=== PATIENT | male | born 1955 | race Caucasian/White ===

== ENCOUNTER 2018-06-30 06:32 | Observation (INO) | payer MEDICARE, OTHER ==
[2018-06-27 10:06] LABS: BASOPHILS # (AUTO) 0.1 (0.0-0.1); BASOPHILS % 0.8 % (0.0-1.0); EOSINOPHILS # (AUTO) 0.4 (0.0-0.4); EOSINOPHILS % 5.6 % (0.0-6.0); HEMATOCRIT 45.9 % (38.2-49.6); HEMOGLOBIN 15.8 g/dL (14.0-18.0); LYMPHOCYTES # (AUTO) 1.7 (1.0-3.2); LYMPHOCYTES % 22.8 % (18.0-39.1); MEAN CORPUSCULAR HEMOGLOBIN 30.4 pg (28-32); MEAN CORPUSCULAR HGB CONC 34.4 g/dL (31-35); MEAN CORPUSCULAR VOLUME 88.4 fL (81-99); MONOCYTES # (AUTO) 0.8 (0.2-0.8); MONOCYTES % 10.9 % (4.4-11.3); NEUTROPHILS # (AUTO) 4.4 (2.1-6.9); NEUTROPHILS % 58.4 % (38.7-80.0); PLATELET COUNT 184 x10e3/uL (140-360); RED BLOOD COUNT 5.19 x10e6/uL (4.3-5.7); RED CELL DISTRIBUTION WIDTH 13.1 % (11.7-14.4)
--- NOTE | 2018-06-27 10:12 | Diagnostic Imaging Report ---
EXAMINATION: CHEST 2 VIEWS INDICATION: Bladder stone. ^PREOP COMPARISON: None FINDINGS: TUBES and LINES: None. LUNGS: Lungs are well inflated. Lungs are clear. There is no evidence of pneumonia or pulmonary edema. PLEURA: No pleural effusion or pneumothorax. HEART AND MEDIASTINUM: The cardiomediastinal silhouette is unremarkable. BONES AND SOFT TISSUES: No acute osseous lesion. Soft tissues are unremarkable. UPPER ABDOMEN: No free air under the diaphragm. IMPRESSION: No acute thoracic abnormality. Signed by: Dr. Valerio Ortiz M.D. on 06/27/2018 10:09 AM
[2018-06-27 10:17] LABS: ANION GAP 15.1 mmol/L (8-16); BLOOD UREA NITROGEN 11 mg/dL (7-26); BUN/CREATININE RATIO 14 (6-25); CALCIUM 9.3 mg/dL (8.4-10.2); CARBON DIOXIDE 23 mmol/L (22-29); CHLORIDE 103 mmol/L (98-107); CREATININE, SERUM 0.78 mg/dL (0.72-1.25); EST GLOMERULAR FILTRATION RATE > 60 ML/MIN (60-); GLUCOSE 119 mg/dL (74-118); POTASSIUM 4.1 mmol/L (3.5-5.1); SODIUM 137 mmol/L (136-145)
[~2018-06-30] VITALS: Ht 172.7 cm; Wt 70.3 kg
[~2018-06-30 06:32] MED LIST: CRESTOR10 MG PO; LEVOTHYROXINE112 MCG PO; LOSARTAN POTAS100 MG PO; METOPROLOL SUCC50 MG PO; TAMSULOSIN HCL0.4 MG PO
--- OUTSIDE RECORDS SUMMARY | 2018-06-30 06:35 | XMS REPORT ---
[facility] Address Unknown Phone Unavailable Care Team Providers Care Radio Repairer Domestic Name Role Phone Michael RANDHAWA Unavailable Unavailable Problems This patient has no known problems. Allergies, Adverse Reactions, Alerts This patient has no known allergies or adverse reactions. Medications This patient has no known medications. Results Test Description Test Time Test Comments Text Results Atomic Results Result Comments CHEST 2 VIEWS 2018-06-27 10:08:00 [place] [address] Patient Name: MURRAY RODRIGUEZ MR #: [id number] : 1955 Age/Sex: 63/M Req #: [id number] Adm Physician: Ordered by: RAJINDER RANDHAWA MD Report #: [id number] Location: OR Room/Bed: Procedure: [id number] DX/CHEST 2 VIEWS Exam Date: Exam Time: REPORT STATUS: Signed EXAMINATION: CHEST 2 VIEWS INDICATION: Bladder stone. PREOP COMPARISON: None FINDINGS: TUBES and LINES: None. LUNGS: Lungs are well inflated. Lungs are clear. There is no evidence of pneumonia or pulmonary edema. PLEURA: No pleural effusion or pneumothorax. HEART AND MEDIASTINUM: The cardiomediastinal silhouette is unremarkable. BONES AND SOFT TISSUES: No acute osseous lesion. Soft tissues are u nremarkable. UPPER ABDOMEN: No free air under the diaphragm. IMPRESSION: No acute thoracic abnormality. Signed by: Dr. Valerio Ortiz M.D. on 06/27/2018 10:09 AM Dictated By: VALERIO ORTIZ MD, MD 100 Transcribed By: TIMOTEO on 06/27/18 100 COPY TO: RAJINDER RANDHAWA MD
--- OUTSIDE RECORDS SUMMARY | 2018-06-30 06:35 | XMS REPORT | Clinical Summary ---
Author Author [facility] Address Unknown Phone Unavailable Care Team Providers Care Power Plant Operations Manager Name Role Phone Jorge Clark MD PCP Allergies No Known Allergies Medications End Date Status Medication Sig Dispensed Refills Start Date Active losartan (COZAAR) 100 MG Take 100 mg 0 tablet by mouth daily. Active levothyroxine (SYNTHROID, Take 125 mcg 0 LEVOXYL) 125 mcg tablet by mouth every morning. Active simvastatin (ZOCOR) 40 MG Take 40 mg by 0 tablet mouth nightly. Active nebivolol (BYSTOLIC) 5 MG Take 5 mg by 0 tablet mouth daily. Active tamsulosin (FLOMAX) 0.4 Take 0.4 mg 0 mg capsule by mouth daily. Active traMADol (ULTRAM) 50 mg Take 50 mg by 0 tablet mouth every 6 (six) hours as needed for moderate pain. Active Problems Problem Noted Date Spinal stenosis, lumbar region, with neurogenic claudication 02/25/2018 Spinal stenosis, lumbar region with neurogenic claudication 02/25/2018 Encounters Care Team Description Date Type Specialty Matthieu Colvin MD 02/25/2018 Anesthesia General Surgery Event Eddie Butler DO Posterior Lumbar Decompression L2 to S1-Bilateral 02/25/2018 Surgery General Surgery Eddie Butler DO 02/25/2018 Hospital General Surgery - Encounter 02/26/2018 Lela Abbott 02/24/2018 Refill General Surgery Eddie Butler DO Pre-op testing (Primary Dx) 02/17/2018 Pre-Admit Pre-Admission Testing Testing Appointment after 06/29/2017 Family History Medical History Relation Name Comments Diabetes Sister Relation Name Status Comments Sister Alive Social History Date Tobacco Use Types Packs/Day Years Used Quit: 02/18/2012 Former Smoker Cigarettes Smokeless Tobacco: Never Used Alcohol Use Drinks/Week oz/Week Comments No Sex Assigned at Date Recorded Not on file Industry Job Start Date Occupation Not on file Not on file Not on file Travel End Travel History Travel Start No recent travel history available. Last Filed Vital Signs Time Taken Vital Sign Reading 02/26/2018 4:01 PM CDT Blood Pressure 134/60 02/26/2018 4:01 PM CDT Pulse 73 02/26/2018 4:01 PM CDT Temperature 36.2 C (97.2 F) 02/26/2018 4:01 PM CDT Respiratory Rate 17 02/26/2018 4:01 PM CDT Oxygen Saturation 94% - Inhaled Oxygen - Concentration 02/25/2018 1:36 PM CDT Weight 115 kg (253 lb) 02/25/2018 1:36 PM CDT Height 172.7 cm (5' 8") 02/25/2018 1:36 PM CDT Body Mass Index 38.47 Plan of Treatment Health Maintenance Due Date Last Done Comments COLON CANCER SCREENING 2003 SHINGLES VACCINES (1 of 2003 2) INFLUENZA VACCINE 12/15/2017 01/08/2017 PNEUMOCOCCAL 2018 POLYSACCHARIDE VACCINE AGE 65 AND OVER PNEUMOCOCCAL-13 2018 Procedures Comments Procedure Name Priority Date/Time Associated Diagnosis ESTIMATED GFR Routine 02/26/2018 5:52 AM CDT BASIC METABOLIC PANEL Routine 02/26/2018 5:52 AM CDT HC COMPLETE BLD COUNT Routine 02/26/2018 W/AUTO DIFF 5:52 AM CDT VA AN ELECTIVE Routine 02/25/2018 ENDOTRACHEAL AIRWAY 10:18 AM CDT Procedure Note - Roseann Ball MD - 02/25/2018 10:18 AM CDT Airway Date/Time: 02/25/2018 9:53 AM Performed by: ROSEANN BALL Authorized by: ROSEANN BALL Location: OR Urgency: Elective Difficult Airway: No Anesthesio logist: ROSEANN BALL Performed by: anesthesio logist Preoxygena luigi with 100% O2: Yes C-spine Precaution s Maintained Throughout : Yes Mask Ventilatio n: Not attempted Final Airway Type: Endotrache al airway Final Endotrache al Airway: ETT Cuffed: Yes Technique Used: Direct laryngosco py Insertion Site: Oral Blade Type: Ye Laryngosco pe Blade/Vide olaryngosc ope Blade Size: 4 ETT Size (mm): 8.0 Cuff at minimum occlusion pressure: Yes Measured from: Lips ETT to Lips (cm): 24 Placement Verified by: CO2 detection and direct visualizat ion Laryngosco pic view: Grade I - full view of glottis Rapid Sequence Induction (RSI): No Modified RSI: No Number of Attempts at Approach: 1 ECG PRE/POST OP Routine 02/17/2018 Pre-op testing 5:27 PM CDT ESTIMATED GFR Routine 02/17/2018 5:17 PM CDT PROTHROMBIN TIME WITH INR Routine 02/17/2018 Pre-op testing 5:17 PM CDT BASIC METABOLIC PANEL Routine 02/17/2018 Pre-op testing 5:17 PM CDT TYPE AND SCREEN Routine 02/17/2018 Pre-op testing 5:17 PM CDT HC COMPLETE BLD COUNT Routine 02/17/2018 Pre-op testing W/AUTO DIFF 5:17 PM CDT after 06/29/2017 Results * Estimated GFR (02/26/2018 5:52 AM CDT) Only the most recent of 2 results within the time period is included. Estimated GFR >=90 mL/min/1.73 m2 [facility] Comment: PATHOLOGY AND [employer] GENOMIC MEDICINE rpretation G1 >=90 Normal or high G2 60-89Mildly decreased [id number] Mildly to moderately decreased N2i13-60 Moderately to severely decreased G4 15-29Severely decreased G5 <15Kidney failure The eGFR was calculated using the Chronic Kidney Disease Epidemiology Collaboration (CKD-EPI) equation. Interpretation is based on recommendations of the National Kidney Foundation-Kidney Disease Outcomes Quality Initiative (NKF-KDOQI) published in 2014. Specimen Plasma specimen Performing Organization Address City/State/Zipcode Phone Number [facility] [address] [place] [address] PATHOLOGY AND GENOMIC MEDICINE * CBC with platelet and differential (02/26/2018 5:52 AM CDT) Only the most recent of 2 results within the time period is included. WBC 15.4 (H) 4.2 - 11.0 k/uL [facility]OLOGY AND GENOMIC MEDICINE RBC 3.71 (L) 4.04 - 5.86 m/uL [facility] PATHOLOGY AND GENOMIC MEDICINE HGB 11.8 (L) 13.0 - 17.3 g/dL [facility]OLOGY AND GENOMIC MEDICINE HCT 35.3 34.0 - 45.0 % [facility]OLOGY AND GENOMIC MEDICINE MCV 95.1 80.0 - 98.0 fL [facility]OLOGY AND GENOMIC MEDICINE MCH 31.8 27.0 - 34.0 pg [facility]OLOGY AND GENOMIC MEDICINE MCHC 33.4 31.5 - 36.5 g/dL [facility]OLOGY AND GENOMIC MEDICINE RDW - SD 44.4 37.0 - 51.0 fL [facility] AND GENOMIC MEDICINE MPV 9.8 7.4 - 10.4 fL [facility]Y AND GENOMIC MEDICINE Platelet count 197 150 - 400 k/uL [facility]OLOGY AND GENOMIC MEDICINE Nucleated RBC 0.00 /100 WBC [facility]OLOGY AND GENOMIC MEDICINE Neutrophils 85.3 (H) 36.0 - 66.0 % [facility]OLOGY AND GENOMIC MEDICINE Lymphocytes 6.3 (L) 24.0 - 44.0 % [facility]Y AND GENOMIC MEDICINE Monocytes 7.7 (H) 0.0 - 6.0 % [facility]OLOGY AND GENOMIC MEDICINE Eosinophils 0.0 0.0 - 6.0 % [facility] PATHOLOGY AND GENOMIC MEDICINE Basophils 0.1 0.0 - 1.2 % [facility] PATHOLOGY AND GENOMIC MEDICINE Immature granulocytes 0.6 0.0 - 1.0 % [facility]OLOGY AND GENOMIC MEDICINE Specimen Blood Performing Organization Address City/State/Zipcode Phone Number [place] [phone] [place] [address] PATHOLOGY AND GENOMIC MEDICINE * Basic metabolic panel (02/26/2018 5:52 AM CDT) Only the most recent of 2 results within the time period is included. Sodium 135 135 - 150 mEq/L [facility] PATHOLOGY AND GENOMIC MEDICINE Potassium 4.6 3.5 - 5.0 mEq/L [facility] PATHOLOGY AND GENOMIC MEDICINE Chloride 100 98 - 112 mEq/L [facility]OLOGY AND GENOMIC MEDICINE CO2 25 24 - 31 mmol/L [facility] PATHOLOGY AND GENOMIC MEDICINE Anion gap 10@ANIO 7 - 15 mEq/L [facility]OLOGY AND GENOMIC MEDICINE BUN 14 7 - 18 mg/dL [facility]OLOGY AND GENOMIC MEDICINE Creatinine 0.70 0.70 - 1.20 mg/dL [facility]OLOGY AND GENOMIC MEDICINE Glucose 121 (H) 65 - 100 mg/dL [facility]OLOGY AND GENOMIC MEDICINE Calcium 8.8 8.8 - 10.2 mg/dL [facility] PATHOLOGY AND [employer] MEDICINE Specimen Plasma specimen Performing Organization Address City/[facility] Services[facility] Phone Number [place] [address] [place] [address] PATHOLOGY AND GENOMIC MEDICINE * ECG Pre/Post Op (02/17/2018 5:27 PM CDT) Ventricular rate 60 [facility] Atrial rate 60 [facility] VA interval 180 [facility] QRSD interval 100 [facility] QT interval 394 [facility] QTC interval 394 [facility] P axis 1 67 [facility] QRS axis 1 35 [facility] T wave axis 40 [facility] EKG impression Normal sinus rhythm-Normal [facility] ECG-No previous ECGs available- Performing Organization Address City/[facility] Servicescoga Phone Number [facility] [employer] [address] [place] [address] * Prothrombin time with INR (02/17/2018 5:17 PM CDT) Prothrombin time 13.0 12.0 - 15.0 sec [facility]Y AND GENOMIC MEDICINE INR 0.97 0.92 - 1.12 [facility] Comment: PATHOLOGY AND For patients on anticoagulant GENOMIC MEDICINE therapy, reference ranges below: Indication: INR Value Treatment of Venous Thrombosis, 2.0-3.0 pulmonary emboli, or prophylaxis of a venous thrombosis, or systemic emboli. High dose, high risk patients 3.0-4.5 with mechanical valves. NOTE:INR values over 3.0 are sometimes associated with gastrointestinal hemorrhage, especially values over 4.0. Specimen Blood Performing Organization Address City/[facility] Servicescode Phone Number [place] [phone] [place] [address] PATHOLOGY AND GENOMIC MEDICINE * Type and screen (02/17/2018 5:17 PM CDT) ABO grouping A [facility]Y AND GENOMIC MEDICINE Rh type NEG [facility]Y AND GENOMIC MEDICINE Antibody screen (gel) NEG [facility]Y AND GENOMIC MEDICINE Specimen Blood Performing Organization Address City/State/Zipcode Phone Number [facility] [address] [place] [address] PATHOLOGY AND GENOMIC MEDICINE after 06/29/2017 Insurance Payer Benefit Subscriber ID Type Phone Address Plan / Group BCBS BCBS OUT xxxxxxxxxxxx PPO OF STATE Advance Directives Patient has advance care planning documents, and code status on file. For more i nformation, please contact: Anand Jiménez [address] [place] [address] Date Inactivated Comments Code Status Date Activated 02/26/2018 11:19 PM Full Code 02/25/2018 1:08 PM Code Status decision reached by: Patient
[2018-06-30] MEDS ORDERED: CEFTRIAXONE SOD 1 GM/NS 50 ML 50 ML IV ONE (07:13)
[2018-06-30] MEDS ORDERED: BELLADONNA/OPIUM 30 MG SUPP RC ONE (07:56)
[2018-06-30] MEDS ORDERED: IOPAMIDOL 610MG/1ML 300 MG/ML VIAL IV ONE (07:56)
[2018-06-30] MEDS ORDERED: LABETALOL HCL 20 MG/4 ML SYRINGE IV ONE (09:31)
[2018-06-30] MEDS ORDERED: MORPHINE SULFATE INJ 4 MG/ML INJ 1ML ONE (09:47)
--- NOTE | 2018-06-30 10:13 | Operative Report ---
DATE OF PROCEDURE: June 30, 2018 PREOPERATIVE DIAGNOSIS: Bladder stone. POSTOPERATIVE DIAGNOSIS: Bladder tumor. OPERATIVE PROCEDURES PERFORMED 1. Cystoscopy. 2. Transurethral resection of bladder tumor. ANESTHESIA: General anesthesia. ESTIMATED BLOOD LOSS: Minimal. INDICATIONS: Mr. Krishna Gamez is a 63-year-old gentleman with hematuria, who was found by CT scan to have normal upper tracts, but an approximately 3 cm bladder stone. He now presents for definitive surgical management of this problem. PROCEDURE IN DETAIL: Patient was brought into the operating room and placed in the supine position. After initiation of general anesthesia, was placed in the dorsal lithotomy position, and prepped and draped in the usual sterile fashion. Cystourethroscopy was performed using a 21-Nigerian cystoscope. The anterior and posterior urethra were noted to be normal. The prostate revealed evidence of elevation of the median bar and mild lateral lobar hyperplasia. The bladder was entered with moderate difficulty. Upon entrance into the bladder, the ureteral orifices were in normal anatomical position and produced clear reflux. 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 There were multiple peripheral calcifications seen varying in sizes. The bladder was left full and the cystoscope and sheath were removed. A 44-Nigerian resectoscope sheath was then placed in a retrograde fashion. The [employer] resectoscope was used to resect the tumor down to the level of the muscle. The tumor was then removed in its entirety. A large specimen greater than 4 cm was removed and sent to pathology for microscopic analysis. Once adequate hemostasis was ensured, the bladder was left full and the cystoscope and sheath were removed. The patient was noted to have a brisk urinary flow with Coude. A 20-Nigerian Arthur was placed and the balloon inflated. This urinary efflux was noted to be blood-tinged. The patient was returned to the supine position and anesthesia was reversed. He was transferred to a bed and taken to the postanesthesia care unit in good condition. Of note, the needle and instrument count were correct at the conclusion of the case. Job#: [id number]
[2018-06-30] MEDS ORDERED: FENTANYL CITRATE/PF 100MCG/2 ML INJ ONE ×2 (10:55→19:00)
[2018-06-30] MEDS ORDERED: ONDANSETRON HCL INJ 2MG/ML 2ML 2 MG/ML VIAL ONE ×2 (13:31→19:35)
--- OUTSIDE RECORDS SUMMARY | 2018-06-30 13:32 | XMS REPORT | Clinical Summary ---
Author Author [facility] Organization [facility] Address Unknown Phone Unavailable Care Team Providers Care Regulatory Affairs Portfolio Leader Name Role Phone Jorge Clark MD PCP [...] Routine 02/26/2018 W/AUTO DIFF 5:52 AM CDT HI AN ELECTIVE Routine 02/25/2018 ENDOTRACHEAL AIRWAY 10:18 [...] is included. Estimated GFR >=90 mL/min/1.73 m2 [facility] Comment: PATHOLOGY AND CatergoryUnitsInte GENOMIC MEDICINE rpretation G1 >=90 Normal or high G2 60-89Mildly decreased [id number] Mildly to moderately decreased L1v00-51 Moderately to severely decreased G4 15-29Severely decreased G5 <15Kidney failure The eGFR was calculated using the Chronic Kidney Disease Epidemiology Collaboration (CKD-EPI) equation. Interpretation is based on recommendations of the National Kidney Foundation-Kidney Disease Outcomes Quality Initiative (NKF-KDOQI) published in 2014. Specimen Plasma specimen Performing Organization Address City/State/Zipcode Phone Number [facility] [address] [place] [address] PATHOLOGY AND GENOMIC MEDICINE * CBC with platelet and differential (02/26/2018 5:52 AM CDT) Only the most recent of 2 results within the time period is included. WBC 15.4 (H) 4.2 - 11.0 k/uL [facility] PATHOLOGY AND GENOMIC MEDICINE RBC 3.71 (L) 4.04 - 5.86 m/uL [facility] PATHOLOGY AND GENOMIC MEDICINE HGB 11.8 (L) 13.0 - 17.3 g/dL [facility] PATHOLOGY AND GENOMIC MEDICINE HCT 35.3 34.0 - 45.0 % [facility] PATHOLOGY AND GENOMIC MEDICINE MCV 95.1 80.0 - 98.0 fL [facility] PATHOLOGY AND GENOMIC MEDICINE MCH 31.8 27.0 - 34.0 pg [facility] PATHOLOGY AND GENOMIC MEDICINE MCHC 33.4 31.5 - 36.5 g/dL [facility] PATHOLOGY AND GENOMIC MEDICINE RDW - SD 44.4 37.0 - 51.0 fL [facility] PATHOLOGY AND GENOMIC MEDICINE MPV 9.8 7.4 - 10.4 fL [facility] PATHOLOGY AND GENOMIC MEDICINE Platelet count 197 150 - 400 k/uL [facility] PATHOLOGY AND GENOMIC MEDICINE Nucleated RBC 0.00 /100 WBC [facility] PATHOLOGY AND GENOMIC MEDICINE Neutrophils 85.3 (H) 36.0 - 66.0 % [facility] PATHOLOGY AND GENOMIC MEDICINE Lymphocytes 6.3 (L) 24.0 - 44.0 % [facility] PATHOLOGY AND GENOMIC MEDICINE Monocytes 7.7 (H) 0.0 - 6.0 % [facility] PATHOLOGY AND GENOMIC MEDICINE Eosinophils 0.0 0.0 - 6.0 % [facility] PATHOLOGY AND GENOMIC MEDICINE Basophils 0.1 0.0 - 1.2 % [facility] PATHOLOGY AND GENOMIC MEDICINE Immature granulocytes 0.6 0.0 - 1.0 % [facility] PATHOLOGY AND GENOMIC MEDICINE Specimen Blood Performing Organization Address City/State/Zipcode Phone Number [place] [phone] [place] [address] PATHOLOGY AND GENOMIC MEDICINE * Basic metabolic panel (02/26/2018 5:52 AM CDT) Only the most recent of 2 results within the time period is included. Sodium 135 135 - 150 mEq/L [facility] PATHOLOGY AND GENOMIC MEDICINE Potassium 4.6 3.5 - 5.0 mEq/L [facility] PATHOLOGY AND GENOMIC MEDICINE Chloride 100 98 - 112 mEq/L [facility] PATHOLOGY AND GENOMIC MEDICINE CO2 25 24 - 31 mmol/L [facility] PATHOLOGY AND GENOMIC MEDICINE Anion gap 10@ANIO 7 - 15 mEq/L [facility] PATHOLOGY AND GENOMIC MEDICINE BUN 14 7 - 18 mg/dL [facility] PATHOLOGY AND GENOMIC MEDICINE Creatinine 0.70 0.70 - 1.20 mg/dL [facility] PATHOLOGY AND GENOMIC MEDICINE Glucose 121 (H) 65 - 100 mg/dL [facility] PATHOLOGY AND GENOMIC MEDICINE Calcium 8.8 8.8 - 10.2 mg/dL [facility] OF PATHOLOGY AND [employer] MEDICINE Specimen Plasma specimen Performing Organization Address City/[facility] Cent[facility] Phone Number [place] [address] [place] [address] PATHOLOGY AND GENOMIC MEDICINE * ECG Pre/Post Op (02/17/2018 5:27 PM CDT) Ventricular rate 60 [facility] Atrial rate 60 [facility] HI interval 180 [facility] QRSD interval 100 [facility] QT interval 394 [facility] QTC interval 394 [facility] P axis 1 67 [facility] QRS axis 1 35 [facility] T wave axis 40 [facility] EKG impression Normal sinus rhythm-Normal [facility] ECG-No previous ECGs available- Performing Organization Address City/[facility] Centercoal Phone Number [facility] [employer] [address] [place] [address] * Prothrombin time with INR (02/17/2018 5:17 PM CDT) Prothrombin time 13.0 12.0 - 15.0 sec [facility] PATHOLOGY AND GENOMIC MEDICINE INR 0.97 0.92 - 1.12 [facility] Comment: PATHOLOGY AND For patients on anticoagulant GENOMIC MEDICINE therapy, reference ranges below: Indication: INR Value Treatment of Venous Thrombosis, 2.0-3.0 pulmonary emboli, or prophylaxis of a venous thrombosis, or systemic emboli. High dose, high risk patients 3.0-4.5 with mechanical valves. NOTE:INR values over 3.0 are sometimes associated with gastrointestinal hemorrhage, especially values over 4.0. Specimen Blood Performing Organization Address City/[facility] Cent[facility]ode Phone Number [place] [phone] [place] [address] PATHOLOGY AND GENOMIC MEDICINE * Type and screen (02/17/2018 5:17 PM CDT) ABO grouping A [facility] PATHOLOGY AND GENOMIC MEDICINE Rh type NEG [facility] PATHOLOGY AND GENOMIC MEDICINE Antibody screen (gel) NEG [facility] PATHOLOGY AND GENOMIC MEDICINE Specimen Blood Performing Organization Address City/State/Zipcode Phone Number [facility] [address] [place] [address] PATHOLOGY AND GENOMIC MEDICINE after 06/29/2017 Insurance Payer Benefit Subscriber ID Type Phone Address Plan / Group BCBS BCBS OUT xxxxxxxxxxxx PPO OF STATE Advance Directives Patient has advance care planning documents, and code status on file. For more i nformation, please contact: Anand Jiménez [address] [place] [address] Date Inactivated Comments Code Status Date Activated 02/26/2018 11:19 PM Full Code 02/25/2018 1:08 PM Code Status decision reached by: Patient
[2018-06-30 13:44] LABS: HEMATOCRIT 39.6 % (38.2-49.6); HEMOGLOBIN 13.9 g/dL (14.0-18.0)
[2018-06-30 14:41] LABS: ALANINE AMINOTRANSFERASE 27 IU/L (0-55); ALBUMIN/GLOBULIN RATIO 1.4 (0.8-2.0); ALKALINE PHOSPHATASE 50 IU/L (40-150); ANION GAP 14.3 mmol/L (8-16); BLOOD UREA NITROGEN 17 mg/dL (7-26); BUN/CREATININE RATIO 24 (6-25); CALCIUM 8.1 mg/dL (8.4-10.2); CARBON DIOXIDE 20 mmol/L (22-29); CHLORIDE 103 mmol/L (98-107); CREATININE, SERUM 0.72 mg/dL (0.72-1.25); EST GLOMERULAR FILTRATION RATE > 60 ML/MIN (60-); GLUCOSE 148 mg/dL (74-118); POTASSIUM 4.3 mmol/L (3.5-5.1); SODIUM 133 mmol/L (136-145)
[2018-06-30 15:48] VITALS: BP 106/72
[2018-06-30 15:49] VITALS: BP 107/62
[2018-06-30 16:04] VITALS: BP 107/62
[2018-06-30] MEDS ORDERED: DEXTROSE 5%/0.45% SOD CHL 1,000 ML IV SCH (16:15)
[2018-06-30] MEDS ORDERED: HYDROCODONE/APAP 5MG-325MG TAB PO PRN (16:15)
[2018-06-30] MEDS ORDERED: SODIUM CHLORIDE 0.9% 1000ML 2,000 ML ONE (16:19)
[2018-06-30] MEDS ORDERED: SODIUM CHLORIDE 0.9% 1000ML 1,000 ML IV SCH ×2 (16:30)
[2018-06-30 16:34] LABS: BASOPHILS % 0.1 % (0.0-1.0); HEMOGLOBIN 12.7 g/dL (14.0-18.0); LYMPHOCYTES # (AUTO) 1.1 (1.0-3.2); LYMPHOCYTES % 7.7 % (18.0-39.1); MEAN CORPUSCULAR HEMOGLOBIN 30.5 pg (28-32); MEAN CORPUSCULAR HGB CONC 34.3 g/dL (31-35); MEAN CORPUSCULAR VOLUME 88.7 fL (81-99); MONOCYTES # (AUTO) 0.3 (0.2-0.8); MONOCYTES % 2.4 % (4.4-11.3); NEUTROPHILS # (AUTO) 12.4 (2.1-6.9); NEUTROPHILS % 89.2 % (38.7-80.0); PLATELET COUNT 240 x10e3/uL (140-360); RED BLOOD COUNT 4.17 x10e6/uL (4.3-5.7); RED CELL DISTRIBUTION WIDTH 13.5 % (11.7-14.4)
[2018-06-30] MEDS: SODIUM CHLORIDE 0.9% 1000ML 1,000 ML IV SCH (16:37)
[2018-06-30 16:54] LABS: ANION GAP 14.8 mmol/L (8-16); BLOOD UREA NITROGEN 17 mg/dL (7-26); BUN/CREATININE RATIO 22 (6-25); CALCIUM 8.3 mg/dL (8.4-10.2); CARBON DIOXIDE 20 mmol/L (22-29); CHLORIDE 102 mmol/L (98-107); CREATININE, SERUM 0.77 mg/dL (0.72-1.25); EST GLOMERULAR FILTRATION RATE > 60 ML/MIN (60-); GLUCOSE 158 mg/dL (74-118); POTASSIUM 4.8 mmol/L (3.5-5.1); SODIUM 132 mmol/L (136-145)
[2018-06-30 17:29] LABS: INR 1.01; PROTHROMBIN TIME 14.2 seconds (11.9-14.5)
--- NOTE | 2018-06-30 17:29 | NUR ---
Patient stated he felt cold and clammy/sweaty. Catheter putting out bright red blood and clotting in catheter, patient was pale and diaphoretic, rapid called. Patient placed in Trendelenburg position given bolus of 2 L normal saline and catheter open to continuous irrigation, catheter was putting out bright red blood and clots about 3 inches. New IV started in L FA. Patient alert during the whole process but extremely pale. Vitals at time of rapid were 107/62, 85 HR, 91% 2L NC, 96.2. Patient last vital signs at 1721 were 109/55, 60, 98% 2LNC. Patient is stable at this time no signs of distress will continue to monitor.
[2018-06-30 17:30] LABS: PARTIAL THROMBOPLASTIN TIME 26.4 seconds (23.8-35.5)
--- NOTE | 2018-06-30 18:35 | NUR ---
Updated Dr. Christianson of patient status. Continue to monitor. CBI going at this time with bright red blood. NS @ 100 mls/hr. Patient on regular diet.
[2018-06-30 19:00] VITALS: BP 129/61
[2018-06-30] MEDS ORDERED: MIDAZOLAM HCL 2 MG/2 ML VIAL ONE (19:00)
[2018-06-30 19:08] LABS: HEMATOCRIT 33.1 % (38.2-49.6); HEMOGLOBIN 11.2 g/dL (14.0-18.0)
[2018-06-30] MEDS ORDERED: DEXAMETHASONE SOD PHOS INJ 4 MG/ML VIAL ONE (19:35)
[2018-06-30] MEDS ORDERED: PROPOFOL IV EMULSION 10 MG/ML 20 ML VIAL ONE (19:35)
[2018-06-30] MEDS ORDERED: SEVOFLURANE INHAL SOLN 250 ML PEN BTL ONE (19:35)
[2018-06-30] MEDS ORDERED: KETOROLAC TROMETHAMINE 30 MG/ML VIAL ONE (19:35)
[2018-06-30] MEDS ORDERED: LIDOCAINE HCL 2% LOCAL INJ 5 ML SDV VIAL INJ ONE (19:35)
--- NOTE | 2018-06-30 19:45 | NUR ---
Transferred the pt ti [facility] room#197 in a hospital bed in a stable condition.
[2018-06-30 20:00] VITALS: BP 91/70
[2018-06-30 20:08] LABS: HEMATOCRIT 32.5 % (38.2-49.6); HEMOGLOBIN 11.1 g/dL (14.0-18.0)
[2018-06-30 22:03] LABS: HEMATOCRIT 29.8 % (38.2-49.6); HEMOGLOBIN 10.3 g/dL (14.0-18.0)
[2018-06-30 22:44] VITALS: BP 129/61
[2018-07-01] VITALS (11 sets, daily range): BP systolic 109–141; BP diastolic 60–98
[2018-07-01 00:05] LABS: HEMATOCRIT 28.9 % (38.2-49.6); HEMOGLOBIN 9.8 g/dL (14.0-18.0)
[2018-07-01] MEDS: SODIUM CHLORIDE 0.9% 1000ML 1,000 ML IV SCH ×3 (01:45→17:45)
[2018-07-01 02:13] LABS: HEMATOCRIT 31.7 % (38.2-49.6); HEMOGLOBIN 10.4 g/dL (14.0-18.0)
--- NOTE | 2018-07-01 02:21 | NUR ---
Report received from Med-medical/surgery registered nurseERIK López.Patient transferred from [facility] by bed at 1944. Patient alert/oriented x3.Denied pain and no SOB. No respiratory distress noted. Patient had continuing bladder irrigation, lots of clots with bright red urine found in bag. Assisted to emptying catheter bag with ERIK Tejeda. Patient had continuing 2lierts oxygen via nasal canula,Spo2 maintained 98%.V/S WNL. Patient instructed to call fro help as needed.Bed in lower position,locked. call chung within reach.
--- NOTE | 2018-07-01 02:22 | NUR ---
Patient assisted to used bedside commode,had medium soft yellow BM. Assisted to cleaned and put him back to the bed.Patient tolerated well. Will continue to monitor.
--- NOTE | 2018-07-01 04:48 | NUR ---
Patient continuing on bladder irrigation, color of urine is peña at this time.Will continue to monitor.
[2018-07-01 05:08] LABS: HEMATOCRIT 27.4 % (38.2-49.6); HEMOGLOBIN 9.3 g/dL (14.0-18.0)
[2018-07-01 05:27] LABS: ANION GAP 13.3 mmol/L (8-16); BLOOD UREA NITROGEN 16 mg/dL (7-26); BUN/CREATININE RATIO 23 (6-25); CALCIUM 7.9 mg/dL (8.4-10.2); CARBON DIOXIDE 20 mmol/L (22-29); CHLORIDE 107 mmol/L (98-107); CREATININE, SERUM 0.71 mg/dL (0.72-1.25); EST GLOMERULAR FILTRATION RATE > 60 ML/MIN (60-); GLUCOSE 150 mg/dL (74-118); POTASSIUM 4.3 mmol/L (3.5-5.1); SODIUM 136 mmol/L (136-145)
--- NOTE | 2018-07-01 07:22 | NUR ---
Report given to ABRAN Collins,walking round done.
[2018-07-01 08:36] LABS: HEMATOCRIT 25.3 % (38.2-49.6); HEMOGLOBIN 8.7 g/dL (14.0-18.0)
--- NOTE | 2018-07-01 09:10 | NUR ---
DR. RANDHAWA CALLED AND CM LM TO DISCUSS LOC. MD AWARE PATIENT MEETS INPATIENT STATUS. PENDING RETURN CALL FOR INPT ORDER. BEDSIDE RNTHOMAS NOTIFIED IF SHE SPEAKS TO MD PRIOR TO MD RETURNING PHONE CALL PLEASE ASK FOR INPT ORDER.
[2018-07-01 10:14] LABS: HEMATOCRIT 24.2 % (38.2-49.6); HEMOGLOBIN 8.3 g/dL (14.0-18.0)
--- NOTE | 2018-07-01 10:59 | NUR ---
Patient transferred to room 114, handoff report nurse Stephanie.
--- NOTE | 2018-07-01 11:10 | NUR ---
ARRIVED VIA WC FROM IMCU, CBI IN PROGRESS, PT ORIENTED TO ROOM AND CALL LIGHT SYSTEM CALL LIGHT WITHIN REACH
--- NOTE | 2018-07-01 12:21 | NUR ---
VERIFIED HOME MEDICATIONS WITH PT
[2018-07-01 12:35] LABS: HEMATOCRIT 25.3 % (38.2-49.6); HEMOGLOBIN 8.5 g/dL (14.0-18.0)
[2018-07-01 14:47] LABS: HEMATOCRIT 24.4 % (38.2-49.6); HEMOGLOBIN 8.1 g/dL (14.0-18.0)
--- NOTE | 2018-07-01 15:50 | NUR ---
SPOKE WITH MD RANDHAWA, ORDERS NOTED
--- NOTE | 2018-07-01 18:45 | NUR ---
MD RANDHAWA INTO SEE PT, DISCUSSED POC, ORDERS NOTED, CBI CONTINUES PER MD ORDER, AWARE OF INTERMITTENT CLOTS
--- NOTE | 2018-07-01 19:28 | NUR ---
WALKING ROUNDS PERFORMED, RECEIVED PT LAYING SEMI FOWLERS IN BED, AAOX3, RR EVEN AND NON-LABORED, ON RA. NO S/SX OF DISTRESS NOTED. PT RECEIVING CONTINUOUS BLADDER IRRIGATION, PALE PINK URINE NOTED. PT ASSISTED TO AMBULATE TO BATHROOM AND BACK TO BED. LEFT PT LAYING SEMI FOWLERS IN BED, BED IN LOW LOCKED POSITION, SIDE RAILS UPX2, CALL LIGHT AND PHONE WITHIN REACH.
[2018-07-01] MEDS ORDERED: LEVOTHYROXINE SODIUM 112 MCG TAB PO SCH ×2 (21:00)
[2018-07-01] MEDS ORDERED: SIMVASTATIN 40 MG TAB PO SCH (21:00)
[2018-07-01] MEDS: LEVOTHYROXINE SODIUM 125 MCG TAB PO SCH (21:32)
[2018-07-01] MEDS: TAMSULOSIN HCL 0.4 MG CAP PO SCH (21:32)
[2018-07-01] MEDS: SIMVASTATIN 20 MG TAB PO SCH (21:32)
[2018-07-02] VITALS (8 sets, daily range): BP systolic 111–171; BP diastolic 59–75
[2018-07-02] MEDS: SODIUM CHLORIDE 0.9% 1000ML 1,000 ML IV SCH ×3 (01:18→08:46)
--- NOTE | 2018-07-02 04:10 | NUR ---
CBI DISCONTINUED AT THIS TIME PER MD ORDER. PT CURRENTLY PUTTING OUT PALE PINK URINE. WILL CONTINUE TO MONITOR.
--- NOTE | 2018-07-02 09:08 | NUR ---
PT VOIDING CH COLORED URINE, PT SHOWERED, NOW AMBULATING IN HALLWAY, STEADY GAIT
--- NOTE | 2018-07-02 11:26 | NUR ---
AMBULATING IN HALLWAY, STEADY GAIT
--- NOTE | 2018-07-02 12:49 | NUR ---
PT CONTINUES TO VOID CH COLORED URINE WITH SMALL INTERMITTENT CLOTS NOTED
--- NOTE | 2018-07-02 13:51 | NUR ---
AMBULATING IN HALLWAY, STEADY GAIT
--- NOTE | 2018-07-02 14:46 | NUR ---
MD RANDHAWA INTO SEE PT, MADE AWARE OF PT VOIDING CH TINGED URINE WITH INTERMITTENT CLOTS, ORDERS NOTED TO MONITOR PT AND POSSIBLE DISCHARGE TOMORROW
--- NOTE | 2018-07-02 17:00 | NUR ---
AMBULATING IN HALLWAY, STEADY GAIT
--- NOTE | 2018-07-02 18:44 | NUR ---
VOICES NO NEEDS AT THIS TIME, PT REPORTS HAD BM AND CONTINUES TO HAVE INTERMITTENT CLOTS WHILE VOIDING, CALL LIGHT WITHIN REACH Addendum: 07/02/18 at 1850 by Stephanie Ray RN REPORTS URINE IS CLEAR AT THIS TIME, AND DECREASED CLOTS
--- NOTE | 2018-07-02 19:14 | NUR ---
WALKING ROUNDS PERFORMED, RECEIVED PT LAYING SEMI FOWLERS IN BED, AAOX3, RR EVEN AND NON-LABORED, ON RA. NO S/SX OF DISTRESS NOTED. LEFT PT LAYING SEMI FOWLERS IN BED, BED IN LOW LOCKED POSITION, SIDE RAILS UPX2, CALL LIGHT AND PHONE WITHIN REACH.
[2018-07-02] MEDS: TAMSULOSIN HCL 0.4 MG CAP PO SCH (21:45)
[2018-07-02] MEDS: SIMVASTATIN 20 MG TAB PO SCH (21:45)
[2018-07-02] MEDS: LEVOTHYROXINE SODIUM 125 MCG TAB PO SCH (21:45)
[2018-07-03] VITALS: BP 112/57
[2018-07-03 04:00] VITALS: BP 116/66
[2018-07-03 07:52] VITALS: BP 112/67
[2018-07-03 10:17] VITALS: BP 96/56
[2018-07-03 10:20] VITALS: BP 112/67
[2018-07-03 12:18] VITALS: BP 131/61
[2018-07-03] MEDS ORDERED: TYLENOL WITH C1 EACH PO (13:33)
[2018-07-03] MEDS ORDERED: CIPRO500 MG PO (13:34)
[2018-07-08] MEDS ORDERED: MELATONIN3 MG PO (10:44)
== END 2018-07-03 13:54 | disposition home or self-care (01) ==
LOC: OR 06:32 → PACU V 13:24 → MED/SURG 15:32 → IMCU 19:44 → MED/SURG 07-01 11:07
PROVIDERS: ADMIT Urology; ATTEND Urology
DX: C67.9 Malignant neoplasm of bladder, unspecified (principal); N21.0 Calculus in bladder; Z01.810 Encounter for preprocedural cardiovascular examination; Z01.812 Encounter for preprocedural laboratory examination; Z01.811 Encounter for preprocedural respiratory examination; I10 Essential (primary) hypertension; Z83.3 Family history of diabetes mellitus; R31.29 Other microscopic hematuria
CPT/HCPCS: 36415 ×3; 52318; 71046; 80048 ×3; 80053; 82948; 84484; 85014 ×2; 85018 ×2; 85025 ×2; 85610; 85730; 86850; 86900; 88305; 93005 ×2; G0378 ×4; J0696; J1100; J1885; J2001; J2250; J2270; J2405; J2704; J7030 ×3

== ENCOUNTER → 2018-09-08 | Day surgery (SDC) | payer MEDICARE, OTHER ==
[2018-07-08 11:06] LABS: BASOPHILS % 0.3 % (0.0-1.0); EOSINOPHILS # (AUTO) 0.2 (0.0-0.4); EOSINOPHILS % 3.3 % (0.0-6.0); HEMATOCRIT 26.9 % (38.2-49.6); HEMOGLOBIN 8.9 g/dL (14.0-18.0); LYMPHOCYTES # (AUTO) 1.2 (1.0-3.2); LYMPHOCYTES % 16.3 % (18.0-39.1); MEAN CORPUSCULAR HEMOGLOBIN 30.6 pg (28-32); MEAN CORPUSCULAR HGB CONC 33.1 g/dL (31-35); MEAN CORPUSCULAR VOLUME 92.4 fL (81-99); MONOCYTES # (AUTO) 0.6 (0.2-0.8); MONOCYTES % 8.1 % (4.4-11.3); NEUTROPHILS # (AUTO) 5.3 (2.1-6.9); NEUTROPHILS % 71.2 % (38.7-80.0); PLATELET COUNT 280 x10e3/uL (140-360); RED BLOOD COUNT 2.91 x10e6/uL (4.3-5.7); RED CELL DISTRIBUTION WIDTH 14.3 % (11.7-14.4)
[2018-09-02 09:45] LABS: BASOPHILS % 0.6 % (0.0-1.0); EOSINOPHILS # (AUTO) 0.3 (0.0-0.4); EOSINOPHILS % 4.8 % (0.0-6.0); HEMATOCRIT 38.4 % (38.2-49.6); HEMOGLOBIN 11.8 g/dL (14.0-18.0); LYMPHOCYTES # (AUTO) 1.9 (1.0-3.2); LYMPHOCYTES % 26.2 % (18.0-39.1); MEAN CORPUSCULAR HEMOGLOBIN 25.5 pg (28-32); MEAN CORPUSCULAR HGB CONC 30.7 g/dL (31-35); MEAN CORPUSCULAR VOLUME 83.1 fL (81-99); MONOCYTES # (AUTO) 0.6 (0.2-0.8); MONOCYTES % 8.6 % (4.4-11.3); NEUTROPHILS # (AUTO) 4.2 (2.1-6.9); NEUTROPHILS % 59.5 % (38.7-80.0); PLATELET COUNT 275 x10e3/uL (140-360); RED BLOOD COUNT 4.62 x10e6/uL (4.3-5.7); RED CELL DISTRIBUTION WIDTH 15.2 % (11.7-14.4)
[~2018-09-08] MED LIST changes: +ATACAND32 MG PO; +CIPRO500 MG PO; +FENTANYL CITRATE/PF 100MCG/2 ML INJ ONE; +LIDOCAINE HCL 2% LOCAL INJ 5 ML SDV VIAL INJ ONE; +MELATONIN3 MG PO; +PROPOFOL IV EMULSION 10 MG/ML 20 ML VIAL ONE; +TYLENOL WITH C1 EACH PO
--- OUTSIDE RECORDS SUMMARY | 2018-09-08 09:00 | XMS REPORT | Clinical Summary ---
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 Name Role Phone Jorge Clark MD PCP [...] 02/17/2018 Pre-Admit Pre-Admission Testing Testing Appointment after 09/07/2017 Family History Medical History Relation Name Comments [...] Comments COLON CANCER SCREENING 2003 SHINGLES VACCINES (#1) 2003 65+ PNEUMOCOCCAL VACCINE 2018 (1 of 2 - PCV13) PNEUMOCOCCAL 2018 POLYSACCHARIDE VACCINE AGE 65 AND OVER INFLUENZA VACCINE 12/15/2018 01/08/2017 Procedures Comments Procedure Name Priority Date/Time Associated Diagnosis ESTIMATED GFR Routine 02/26/2018 5:52 AM CDT BASIC METABOLIC PANEL Routine 02/26/2018 5:52 AM CDT HC COMPLETE BLD COUNT Routine 02/26/2018 W/AUTO DIFF 5:52 AM CDT WV AN ELECTIVE Routine 02/25/2018 END[address]HEAL AIRWAY 10:18 [...] testing W/AUTO DIFF 5:17 PM CDT after 09/07/2017 Results * Estimated GFR (02/26/2018 5:52 AM CDT) Only the most recent of 2 results within the time period is included. Estimated GFR >=90 mL/min/1.73 m2 [facility] DEPARTMENT OF Comment: PATHOLOGY AND [employer]ory[employer]its[employer] GENOMIC MEDICINE rpretation G1 >=90 Normal or high G2 60-89Mildly decreased [id number] Mildly to moderately decreased [id number] Moderately to severely decreased G4 15-29Severely decreased G5 <15Kidney failure The eGFR was calculated using the Chronic Kidney Disease Epidemiology Collaboration (CKD-EPI) equation. Interpretation is based on recommendations of the National Kidney Foundation-Kidney Disease Outcomes Quality Initiative (NKF-KDOQI) published in 2014. Specimen Plasma specimen Performing Organization Address City/State/Zipcode Phone Number [facility] DEPARTMENT OF [facility] [place] [address] PATHOLOGY AND GENOMIC MEDICINE * CBC with platelet and differential (02/26/2018 5:52 AM CDT) Only the most recent of 2 results within the time period is included. WBC 15.4 (H) 4.2 - 11.0 k/uL [facility] DEPARTMENT OF PATHOLOGY AND GENOMIC MEDICINE RBC 3.71 (L) 4.04 - 5.86 m/uL [facility] DEPARTMENT OF PATHOLOGY AND GENOMIC MEDICINE HGB 11.8 (L) 13.0 - 17.3 g/dL [facility] DEPARTMENT OF PATHOLOGY AND GENOMIC MEDICINE HCT 35.3 34.0 - 45.0 % [facility] DEPARTMENT OF PATHOLOGY AND GENOMIC MEDICINE MCV 95.1 80.0 - 98.0 fL [facility] DEPARTMENT OF PATHOLOGY AND GENOMIC MEDICINE MCH 31.8 27.0 - 34.0 pg [facility] DEPARTMENT OF PATHOLOGY AND GENOMIC MEDICINE MCHC 33.4 31.5 - 36.5 g/dL [facility] DEPARTMENT OF PATHOLOGY AND GENOMIC MEDICINE RDW - SD 44.4 37.0 - 51.0 fL [facility] DEPARTMENT OF PATHOLOGY AND GENOMIC MEDICINE MPV 9.8 7.4 - 10.4 fL [facility] DEPARTMENT OF PATHOLOGY AND GENOMIC MEDICINE Platelet count 197 150 - 400 k/uL [facility] DEPARTMENT OF PATHOLOGY AND GENOMIC MEDICINE Nucleated RBC 0.00 /100 WBC [facility] DEPARTMENT OF PATHOLOGY AND GENOMIC MEDICINE Neutrophils 85.3 (H) 36.0 - 66.0 % [facility] DEPARTMENT OF PATHOLOGY AND GENOMIC MEDICINE Lymphocytes 6.3 (L) 24.0 - 44.0 % [facility] DEPARTMENT OF PATHOLOGY AND GENOMIC MEDICINE Monocytes 7.7 (H) 0.0 - 6.0 % [facility] DEPARTMENT OF PATHOLOGY AND GENOMIC MEDICINE Eosinophils 0.0 0.0 - 6.0 % [facility] DEPARTMENT OF PATHOLOGY AND GENOMIC MEDICINE Basophils 0.1 0.0 - 1.2 % [facility] OF PATHOLOGY AND GENOMIC MEDICINE Immature granulocytes 0.6 0.0 - 1.0 % [facility] DEPARTMENT OF PATHOLOGY AND GENOMIC MEDICINE Specimen Blood Performing Organization Address City/State/Zipcode Phone Number [place] [address] [place] [address] [facility] [employer] [facility] * Basic metabolic panel (02/26/2018 5:52 AM CDT) Only the most recent of 2 results within the time period is included. Sodium 135 135 - 150 mEq/L [facility] DEPARTMENT OF PATHOLOGY AND GENOMIC MEDICINE Potassium 4.6 3.5 - 5.0 mEq/L [facility] DEPARTMENT OF PATHOLOGY AND GENOMIC MEDICINE Chloride 100 98 - 112 mEq/L [facility] DEPARTMENT OF PATHOLOGY AND GENOMIC MEDICINE CO2 25 24 - 31 mmol/L [facility] DEPARTMENT OF PATHOLOGY AND GENOMIC MEDICINE Anion gap 10@ANIO 7 - 15 mEq/L [facility] DEPARTMENT OF PATHOLOGY AND GENOMIC MEDICINE BUN 14 7 - 18 mg/dL [facility] DEPARTMENT OF PATHOLOGY AND GENOMIC MEDICINE Creatinine 0.70 0.70 - 1.20 mg/dL [facility] DEPARTMENT OF PATHOLOGY AND GENOMIC MEDICINE Glucose 121 (H) 65 - 100 mg/dL [facility] DEPARTMENT OF PATHOLOGY AND GENOMIC MEDICINE Calcium 8.8 8.8 - 10.2 mg/dL [facility] DEPARTMENT OF PATHOLOGY AND GENOMIC MEDICINE Specimen Plasma specimen Performing Organization Address City/[facility] Phone Number [place] [id number] [place] [address] PATHOLOGY AND GENOMIC MEDICINE * ECG Pre/Post Op (02/17/2018 5:27 PM CDT) Ventricular rate 60 [facility]USE Atrial rate 60 [facility] WV interval 180 [facility] QRSD interval 100 [facility] QT interval 394 [facility] QTC interval 394 [facility] P axis 1 67 [facility] QRS axis 1 35 [facility] T wave axis 40 [facility] EKG impression Normal sinus rhythm-Normal [facility] ECG-No previous ECGs available- Performing Organization Address City/[facility] Phone Number [facility] [employer] [address] [place] [address] * Prothrombin time with INR (02/17/2018 5:17 PM CDT) Prothrombin time 13.0 12.0 - 15.0 sec [facility] DEPARTMENT OF PATHOLOGY AND GENOMIC MEDICINE INR 0.97 0.92 - 1.12 [facility] DEPARTMENT OF Comment: PATHOLOGY AND For patients on anticoagulant GENOMIC MEDICINE therapy, reference ranges below: Indication: INR Value Treatment of Venous Thrombosis, 2.0-3.0 pulmonary emboli, or prophylaxis of a venous thrombosis, or systemic emboli. High dose, high risk patients 3.0-4.5 with mechanical valves. NOTE:INR values over 3.0 are sometimes associated with gastrointestinal hemorrhage, especially values over 4.0. Specimen Blood Performing Organization Address City/[facility] Phone Number [facility] DEPARTMENT OF [address] [place] [address] PATHOLOGY AND GENOMIC MEDICINE * Type and screen (02/17/2018 5:17 PM CDT) ABO grouping A [facility] DEPARTMENT OF PATHOLOGY AND GENOMIC MEDICINE Rh type NEG [facility] DEPARTMENT OF PATHOLOGY AND GENOMIC MEDICINE Antibody screen (gel) NEG [facility] DEPARTMENT OF PATHOLOGY AND GENOMIC MEDICINE Specimen Blood Performing Organization Address City/State/Zipcode Phone Number [facility] DEPARTMENT OF [address] [place] [address] PATHOLOGY AND GENOMIC MEDICINE after 09/07/2017 Insurance Payer Benefit Subscriber ID Type Phone Address Plan / Group BCBS BCBS OUT xxxxxxxxxxxx PPO OF STATE Advance Directives Patient has advance care planning documents, and code status on file. For more i nformation, please contact: Anand Jiménez [address] [place] [address] Date Inactivated Comments Code Status Date Activated 02/26/2018 11:19 PM Full Code 02/25/2018 1:08 PM Code Status decision reached by: Patient
[2018-09-08 11:45] VITALS: BP 162/100
== END | disposition home or self-care (01) ==
LOC: OR 08:58
PROVIDERS: ATTEND Internal Medicine
DX: K63.5 Polyp of colon (principal); K62.1 Rectal polyp; K57.30 Diverticulosis of large intestine without perforation or abscess without bleeding; K64.0 First degree hemorrhoids; E78.6 Lipoprotein deficiency; I10 Essential (primary) hypertension; E03.9 Hypothyroidism, unspecified; F17.210 Nicotine dependence, cigarettes, uncomplicated; Z01.812 Encounter for preprocedural laboratory examination
CPT/HCPCS: 36415 ×2; 45380; 85025 ×2; 88305; J2001; J2704